=== PATIENT | female | born 1975 | race African-American/Black ===

== ENCOUNTER 2023-12-11 14:07 | Inpatient (IN) | payer OTHER ==
[~2023-12-11] VITALS: Ht 170.2 cm; Wt 106.4 kg
[2023-12-11 14:48] LABS: Alanine Aminotransferase 44 U/L (7-40); Albumin 4.3 g/dL (3.2-4.8); Alkaline Phosphatase 70 U/L (46-116); Anion Gap 7 (5-15); Aspartate Aminotransferase 40 U/L (13-40); BUN/Creatinine Ratio 30.4 (10.0-20.0); Blood Urea Nitrogen 41 mg/dL (9-23); Calcium 9.7 mg/dL (8.5-10.1); Carbon Dioxide 25 mmol/L (20-30); Chloride 104 mmol/L (98-107); Glucose 100 mg/dL (74-106); Potassium 4.4 mmol/L (3.5-5.1); Sodium 136 mmol/L (136-145)
[2023-12-11 14:49] LABS: Bilirubin, Total 1.5 mg/dL (0.2-1.0); Total Protein 6.8 g/dL (5.7-8.2)
[2023-12-11 14:50] LABS: Basophils # (auto) 0.1 10 ^3/uL (0-0.2); Basophils % (auto) 1.6 % (0.0-2.0); Eosinophils # (auto) 0.1 10 ^3/uL (0-0.8); Hematocrit 42.6 % (36.0-46.0); Lymphocytes # (auto) 1.7 10 ^3/uL (0.4-5.4); Lymphocytes % (auto) 33.9 % (10.0-50.0); Mean Corpuscular Hemoglobin 29.5 pg (28.0-32.0); Mean Corpuscular Hgb Conc. 32.9 g/dL (32.0-36.0); Mean Corpuscular Volume 89.7 fL (80.0-100.0); Monocytes # (auto) 0.5 10 ^3/uL (0-1.3); Monocytes % (auto) 10.4 % (0.0-12.0); Neutrophils # (auto) 2.7 10 ^3/uL (1.6-8.6); Neutrophils % (auto) 53.1 % (37.0-80.0); Red Blood Cells 4.74 10^6/uL (4.0-5.20); Red Cell Distribution Width 14.6 % (11.8-14.3); White Blood Cell 5.1 10^3/uL (4.4-10.8)
[2023-12-11 14:52] LABS: Nucleated Red Blood Cells % 3.3 %
[2023-12-11] MEDS ORDERED: HYDROcodone-ACET 5/325MG TAB PO PRN (17:15)
[2023-12-11] MEDS ORDERED: ONDANSETRON HCL 4 MG/2 ML VIAL IV PRN (17:15)
[2023-12-11] MEDS ORDERED: DOCUSATE SOD 100 MG CAP PO PRN (17:15)
[2023-12-11 17:30] LABS: Urine WBC None Seen /hpf (0 - 5)
[2023-12-11 18:27] LABS: Urine Bacteria NONE SEEN /hpf (None Seen); Urine Blood Negative /uL (Negative); Urine Clarity Clear (Clear); Urine Color Colorless (Yellow); Urine Protein, UAD Negative (Negative); Urine Specific Gravity 1.006 (1.001-1.035); Urine Urobilinogen Normal (Negative)
[2023-12-11 18:55] VITALS: PULSE 56; RESP 16; O2SAT 96
[2023-12-11] MEDS: IPRATROPIUM BROM 0.5 MG/2.5ML INH SOL NEB SCH (18:55)
[2023-12-11] MEDS: ALBUTEROL SULF 2.5 MG/0.5ML(0.5%) NEB SOLN NEB SCH (18:55)
[2023-12-11 19:05] VITALS: PULSE 60; RESP 16; O2SAT 100
[2023-12-11 19:56] VITALS: BP 95/56; PULSE 60; RESP 16; TEMP 98.2; O2SAT 96
[2023-12-11] MEDS: SODIUM CHLOR 0.9% PF (SALINE LOCK) 10ML VIAL/SYR IV SCH (22:00)
[2023-12-12] VITALS (13 sets, daily range): BP systolic 95–110; BP diastolic 58–73; PULSE 82–108; RESP 13–20; TEMP 97.6–97.8; O2SAT 95–100
[2023-12-12] MEDS: FUROSEMIDE 40 MG/4 ML VIAL IV SCH (00:04)
[2023-12-12 15:46] LABS: Triglycerides 52 mg/dL (< 150)
[2023-12-12 15:47] LABS: LDL Cholesterol 72 mg/dL (< 100)
[2023-12-12 15:48] LABS: Cholesterol 129 mg/dL (< 200); HDL Cholesterol 47 mg/dL (40-59)
[2023-12-12] MEDS: ASPirin 81 mg TAB PO ONE (15:49)
[2023-12-12] MEDS: HYDROmorphone HCL 2 MG/ML VL/or syr IV PRN (18:10)
[2023-12-12] MEDS: METOPROLOL TARTRATE 25 MG TAB PO SCH (22:00)
[2023-12-12] MEDS: CARVEDILOL 3.125 MG TAB PO SCH (22:00)
[2023-12-13] VITALS (14 sets, daily range): BP systolic 97–109; BP diastolic 66–86; PULSE 55–115; RESP 20–22; TEMP 97.5–97.9; O2SAT 97–100
[2023-12-13 06:36] LABS: Basophils # (auto) 0 10 ^3/uL (0-0.2); Basophils % (auto) 0.8 % (0.0-2.0); Eosinophils # (auto) 0.1 10 ^3/uL (0-0.8); Eosinophils % (auto) 2.1 % (0.0-7.0); Hematocrit 45.7 % (36.0-46.0); Lymphocytes % (auto) 36.8 % (10.0-50.0); Mean Corpuscular Hemoglobin 29.6 pg (28.0-32.0); Mean Corpuscular Hgb Conc. 32.8 g/dL (32.0-36.0); Monocytes # (auto) 0.6 10 ^3/uL (0-1.3); Monocytes % (auto) 11.4 % (0.0-12.0); Neutrophils # (auto) 2.6 10 ^3/uL (1.6-8.6); Neutrophils % (auto) 48.9 % (37.0-80.0); Nucleated Red Blood Cells % 1.4 %; Red Blood Cells 5.08 10^6/uL (4.0-5.20); Red Cell Distribution Width 15.2 % (11.8-14.3); White Blood Cell 5.3 10^3/uL (4.4-10.8)
[2023-12-13 06:51] LABS: Alanine Aminotransferase 41 U/L (7-40); Albumin 4.3 g/dL (3.2-4.8); Alkaline Phosphatase 75 U/L (46-116); Anion Gap 9 (5-15); Aspartate Aminotransferase 35 U/L (13-40); Calcium 9.4 mg/dL (8.7-10.4); Carbon Dioxide 23 mmol/L (20-30); Chloride 105 mmol/L (98-107); Glucose 98 mg/dL (74-106); Magnesium 2.2 mg/dL (1.6-2.6); Potassium 4.2 mmol/L (3.5-5.1); Sodium 137 mmol/L (136-145)
[2023-12-13 06:52] LABS: Total Protein 7.7 g/dL (5.7-8.2)
[2023-12-13 06:54] LABS: Free T3 4.36 pg/mL (2.3-4.2); Free T4 (Free Thyroxine) 1.86 ng/dL (0.89-1.76)
[2023-12-13 07:04] LABS: Blood Urea Nitrogen 29 mg/dL (9-23)
[2023-12-13] MEDS: EMPAGLIFLOZIN 10 MG TAB PO SCH (10:27)
[2023-12-13] MEDS: ASPirin 81 mg TAB PO SCH (10:28)
[2023-12-13] MEDS: ALPRAZolam 0.5 MG TAB PO SCH (14:27)
[2023-12-13] MEDS: ACETAMINOPHEN 325 MG TAB PO PRN (14:29)
[2023-12-13] MEDS: AMIODARONE HCL 200 MG TAB PO ONE (22:00)
[2023-12-14] VITALS (8 sets, daily range): BP systolic 95–150; BP diastolic 58–62; PULSE 58–114; RESP 18–20; TEMP 36.7; O2SAT 94–97
[2023-12-14] MEDS: BUMETANIDE 1 MG TAB PO SCH (06:17)
[2023-12-14] MEDS ORDERED: EMPA1TAB PO (08:40)
[2023-12-14] MEDS ORDERED: SACU1TAB PO (08:40)
[2023-12-14] MEDS ORDERED: METO25TA5 PO (08:40)
[2023-12-14] MEDS ORDERED: BUME2TAB5 PO (08:40)
[2023-12-14] MEDS ORDERED: ALPR1TAB2 PO (08:40)
[2023-12-14] MEDS ORDERED: ALBUAER3 IN (08:40)
[2023-12-14] MEDS: AMIODARONE HCL 200 MG TAB PO SCH (10:00)
[2023-12-14] MEDS: SACUBITRIL-VALSARTAN 24mg/26mg TAB PO SCH (10:00)
== END 2023-12-14 11:00 | disposition home or self-care (01) | DRG 280 ==
LOC: ER 14:07 → TELE-CENTR 17:08 → TELE 17:08 → TELE-CENTR 18:40
PROVIDERS: ADMIT Internal Medicine; ATTEND Family Medicine
DX: I11.0 Hypertensive heart disease with heart failure (principal); I21.A1 Myocardial infarction type 2; I50.23 Acute on chronic systolic (congestive) heart failure; J44.1 Chronic obstructive pulmonary disease with (acute) exacerbation; N17.9 Acute kidney failure, unspecified; I47.20 Ventricular tachycardia, unspecified; E05.00 Thyrotoxicosis with diffuse goiter without thyrotoxic crisis or storm; Z53.29 Procedure and treatment not carried out because of patient's decision for other reasons; Z79.899 Other long term (current) drug therapy; Z95.810 Presence of automatic (implantable) cardiac defibrillator
CPT/HCPCS: 36415; 71046; 80053; 80061; 81001; 83735; 83880; 84439; 84443; 84481; 84484; 85025; 93005; 93306; 94640; G0378

== ENCOUNTER 2024-01-06 23:47 | Inpatient (IN) | payer OTHER ==
[~2024-01-06] VITALS: Ht 177.8 cm; Wt 104.2 kg
[~2024-01-06 23:47] MED LIST: ALBUAER3 IN; ALPR1TAB2 PO; BUME2TAB5 PO; EMPA1TAB PO; METO25TA5 PO; SACU1TAB PO
[2024-01-07 00:40] LABS: Basophils # (auto) 0.1 10 ^3/uL (0-0.2); Basophils % (auto) 1.8 % (0.0-2.0); Eosinophils # (auto) 0.1 10 ^3/uL (0-0.8); Eosinophils % (auto) 1.2 % (0.0-7.0); Hematocrit 46.5 % (36.0-46.0); Hemoglobin 15.1 g/dL (12.2-16.2); Lymphocytes % (auto) 39.5 % (10.0-50.0); Mean Corpuscular Hemoglobin 28.9 pg (28.0-32.0); Mean Corpuscular Hgb Conc. 32.5 g/dL (32.0-36.0); Mean Corpuscular Volume 88.9 fL (80.0-100.0); Monocytes # (auto) 0.4 10 ^3/uL (0-1.3); Monocytes % (auto) 8.4 % (0.0-12.0); Neutrophils # (auto) 2.4 10 ^3/uL (1.6-8.6); Neutrophils % (auto) 49.1 % (37.0-80.0); Nucleated Red Blood Cells % 0.3 %; Red Blood Cells 5.23 10^6/uL (4.0-5.20); Red Cell Distribution Width 15.8 % (11.8-14.3)
[2024-01-07 00:57] LABS: Alanine Aminotransferase 31 U/L (7-40); Albumin 4.3 g/dL (3.2-4.8); Alkaline Phosphatase 78 U/L (46-116); Anion Gap 7 (5-15); Aspartate Aminotransferase 42 U/L (13-40); BUN/Creatinine Ratio 18.6 (10.0-20.0); Blood Urea Nitrogen 19 mg/dL (9-23); Carbon Dioxide 25 mmol/L (20-30); Chloride 106 mmol/L (98-107); Glucose 96 mg/dL (74-106); Potassium 3.7 mmol/L (3.5-5.1); Sodium 138 mmol/L (136-145)
[2024-01-07 00:58] LABS: Total Protein 7.7 g/dL (5.7-8.2)
[2024-01-07] MEDS: ASPirin 81 mg TAB PO ONE (02:13)
[2024-01-07] MEDS ORDERED: NITROGLYCERIN 0.4 MG SL TAB SL PRN (02:45)
[2024-01-07] MEDS ORDERED: ACETAMINOPHEN 325 MG TAB PO PRN (02:45)
[2024-01-07] MEDS ORDERED: ONDANSETRON HCL 4 MG/2 ML VIAL IV PRN (02:45)
[2024-01-07] MEDS ORDERED: MORPHINE SULFATE INJ 2 MG/ml SYRG IV PRN (02:45)
[2024-01-07] MEDS: FUROSEMIDE 40 MG/4 ML VIAL IV ONE (05:39)
[2024-01-07 07:50] VITALS: PULSE 108; RESP 20; O2SAT 100
[2024-01-07] MEDS: ASPirin 81 mg TAB PO SCH (11:51)
[2024-01-07] MEDS: METOPROLOL TARTRATE 25 MG TAB PO SCH (11:52)
[2024-01-07] MEDS: EMPAGLIFLOZIN 10 MG TAB PO SCH (11:52)
[2024-01-07] MEDS: SACUBITRIL-VALSARTAN 24mg/26mg TAB PO SCH (11:52)
[2024-01-07] MEDS: LOSARTAN POTASSIUM 25 MG TAB PO SCH (11:53)
[2024-01-07] MEDS: APIXABAN 5 MG TAB PO SCH (11:53)
[2024-01-07 12:55] LABS: COVID19 ANTIGEN SOFIA FIA NEGATIVE (NEGATIVE)
[2024-01-07 12:56] LABS: Rapid Influenza A Negative (Negative); Rapid Influenza B Negative (Negative)
[2024-01-07 13:42] LABS: INR 1.14 (0.9-1.15); Partial Thromboplastin Time 28.9 SEC (24.5-34.5); Prothrombin Time 11.9 sec (9.3-11.8)
[2024-01-07] MEDS: ALPRAZolam 0.5 MG TAB PO ONE (13:42)
[2024-01-07] MEDS: ALPRAZolam 0.5 MG TAB PO SCH (13:42)
[2024-01-07] MEDS: AMIODARONE HCL 200 MG TAB PO ONE ×2 (14:53→15:32)
[2024-01-07] MEDS: AZITHROMYCIN 500MG/ 250ML 250 ML IV SCH (16:24)
[2024-01-07] MEDS: FUROSEMIDE 20 MG/2 ML VIAL IV SCH (18:00)
[2024-01-07] MEDS ORDERED: FUROSEMIDE 20 MG/2 ML VIAL IV SCH (18:00)
[2024-01-07] MEDS: cefTRIAXone 1GM/50ML D5W 50 ML IV SCH (19:10)
[2024-01-07 19:37] VITALS: BP 99/66; PULSE 98; RESP 18; TEMP 97.7; O2SAT 97
[2024-01-07 19:45] VITALS: PULSE 105; RESP 25; O2SAT 99
[2024-01-07] MEDS: ALBUTEROL SULF 2.5 MG/0.5ML(0.5%) NEB SOLN NEB PRN (19:49)
[2024-01-07 19:50] VITALS: PULSE 98; RESP 18; O2SAT 93
[2024-01-07] MEDS: IPRATROPIUM BROM 0.5 MG/2.5ML INH SOL NEB SCH (19:50)
[2024-01-07 20:00] VITALS: PULSE 97; RESP 20; O2SAT 100
[2024-01-07] MEDS: NALOXONE HCL 1MG/ML 2ML SYRINGE IV ONE (20:22)
[2024-01-07 20:34] LABS: Amphetamine Screen, Urine Pos (NEGATIVE); Barbiturate Scree,Urine Neg (NEGATIVE); Benzodiazephine Screen, Urine Neg (NEGATIVE); Cannabinoid Screen, Urine Pos (NEGATIVE); Cocaine Screen, Urine Neg (NEGATIVE); Opiate Scree,Urine Neg (NEGATIVE); Phencyclidine Screen, Urine Neg (NEGATIVE)
[2024-01-07 20:56] LABS: Urine Bacteria NONE SEEN /hpf (None Seen); Urine Blood TRACE /uL (Negative); Urine Clarity Clear (Clear); Urine Color Colorless (Yellow); Urine Protein, UAD 1+ (Negative); Urine Urobilinogen Normal (Negative); Urine WBC 2 /hpf (0 - 5)
[2024-01-07] MEDS: ALBUMIN 25% 100 ML IV ONE (22:35)
[2024-01-08] VITALS (8 sets, daily range): PULSE 94–108; RESP 15–23; O2SAT 93–100
[2024-01-08 05:56] LABS: Basophils # (auto) 0 10 ^3/uL (0-0.2); Basophils % (auto) 0.9 % (0.0-2.0); Eosinophils # (auto) 0.1 10 ^3/uL (0-0.8); Eosinophils % (auto) 1.1 % (0.0-7.0); Hematocrit 45.2 % (36.0-46.0); Hemoglobin 14.8 g/dL (12.2-16.2); Lymphocytes # (auto) 1.7 10 ^3/uL (0.4-5.4); Lymphocytes % (auto) 35.3 % (10.0-50.0); Mean Corpuscular Hgb Conc. 32.6 g/dL (32.0-36.0); Monocytes # (auto) 0.5 10 ^3/uL (0-1.3); Monocytes % (auto) 9.3 % (0.0-12.0); Neutrophils # (auto) 2.6 10 ^3/uL (1.6-8.6); Neutrophils % (auto) 53.4 % (37.0-80.0); Nucleated Red Blood Cells % 0.2 %; Red Blood Cells 5.08 10^6/uL (4.0-5.20); Red Cell Distribution Width 15.6 % (11.8-14.3); White Blood Cell 4.9 10^3/uL (4.4-10.8)
[2024-01-08 06:12] LABS: Alanine Aminotransferase 25 U/L (7-40); Alkaline Phosphatase 64 U/L (46-116); Anion Gap 11 (5-15); Blood Urea Nitrogen 25 mg/dL (9-23); Calcium 9.5 mg/dL (8.7-10.4); Carbon Dioxide 24 mmol/L (20-30); Chloride 103 mmol/L (98-107); Potassium 3.6 mmol/L (3.5-5.1); Sodium 138 mmol/L (136-145)
[2024-01-08 06:13] LABS: Albumin 3.9 g/dL (3.2-4.8); Aspartate Aminotransferase 32 U/L (13-40)
[2024-01-08 06:14] LABS: Total Protein 7.1 g/dL (5.7-8.2)
[2024-01-08 06:16] LABS: BUN/Creatinine Ratio 19.5 (10.0-20.0); Glucose 88 mg/dL (74-106)
[2024-01-08 06:19] LABS: Bilirubin, Total 1.2 mg/dL (0.2-1.0)
[2024-01-08] MEDS: AMIODARONE HCL 200 MG TAB PO SCH (10:19)
[2024-01-08] MEDS ORDERED: FURO40TA4 PO ×2 (14:19→16:56)
[2024-01-08] MEDS ORDERED: AMIO200T33 PO (14:38)
[2024-01-08] MEDS ORDERED: CARV6.2551 PO (16:56)
[2024-01-08] MEDS ORDERED: ALBU108A5 INH (16:56)
[2024-01-08] MEDS ORDERED: SPIR100T4 PO (16:56)
[2024-01-08] MEDS ORDERED: ERGO1CAP12 PO (16:56)
[2024-01-08] MEDS ORDERED: APIX5TAB PO (16:56)
[2024-01-08 16:59] LABS: Base Excess 1.6 mmol/L (-2.0-2.0)
[2024-01-09] VITALS (19 sets, daily range): BP systolic 101–136; BP diastolic 71–91; PULSE 56–115; RESP 18–40; TEMP 97.2–98.1; O2SAT 92–100
[2024-01-09 09:34] LABS: Base Excess 2.3 mmol/L (-2.0-2.0)
[2024-01-09 14:44] LABS: Base Excess -1.8 mmol/L (-2.0-2.0)
[2024-01-09] MEDS ORDERED: AUG875T PO (17:46)
[2024-01-09] MEDS: guaiFENesin-DM 100/10mg/5ml SYR PO PRN (18:52)
[2024-01-10] VITALS (14 sets, daily range): BP systolic 83–126; BP diastolic 56–74; PULSE 48–102; RESP 16–24; TEMP 97.5–98.4; O2SAT 92–100
[2024-01-10 05:32] LABS: Basophils # (auto) 0.1 10 ^3/uL (0-0.2); Basophils % (auto) 1.7 % (0.0-2.0); Eosinophils # (auto) 0.1 10 ^3/uL (0-0.8); Hematocrit 47.6 % (36.0-46.0); Hemoglobin 15.3 g/dL (12.2-16.2); Lymphocytes # (auto) 1.9 10 ^3/uL (0.4-5.4); Lymphocytes % (auto) 39.8 % (10.0-50.0); Mean Corpuscular Hemoglobin 28.7 pg (28.0-32.0); Mean Corpuscular Hgb Conc. 32.2 g/dL (32.0-36.0); Mean Corpuscular Volume 89.1 fL (80.0-100.0); Monocytes # (auto) 0.6 10 ^3/uL (0-1.3); Monocytes % (auto) 12.2 % (0.0-12.0); Neutrophils % (auto) 43.3 % (37.0-80.0); Nucleated Red Blood Cells % 0.5 %; Red Blood Cells 5.35 10^6/uL (4.0-5.20); Red Cell Distribution Width 15.8 % (11.8-14.3); White Blood Cell 4.7 10^3/uL (4.4-10.8)
[2024-01-10 05:42] LABS: Chloride 100 mmol/L (98-107); Potassium 3.7 mmol/L (3.5-5.1); Sodium 136 mmol/L (136-145)
[2024-01-10 05:43] LABS: Anion Gap 11 (5-15); Calcium 9.7 mg/dL (8.7-10.4); Carbon Dioxide 25 mmol/L (20-30)
[2024-01-10 05:48] LABS: BUN/Creatinine Ratio 22.4 (10.0-20.0); Blood Urea Nitrogen 30 mg/dL (9-23); Glucose 83 mg/dL (74-106)
[2024-01-11] VITALS (9 sets, daily range): BP systolic 91–134; BP diastolic 60–70; PULSE 62–112; RESP 18–22; TEMP 36.7; O2SAT 90–100
[2024-01-11 10:21] LABS: Basophils # (auto) 0 10 ^3/uL (0-0.2); Basophils % (auto) 0.9 % (0.0-2.0); Eosinophils # (auto) 0.1 10 ^3/uL (0-0.8); Eosinophils % (auto) 3.4 % (0.0-7.0); Hematocrit 45.5 % (36.0-46.0); Hemoglobin 14.8 g/dL (12.2-16.2); Lymphocytes % (auto) 25.2 % (10.0-50.0); Mean Corpuscular Hgb Conc. 32.6 g/dL (32.0-36.0); Mean Corpuscular Volume 89.1 fL (80.0-100.0); Monocytes # (auto) 0.5 10 ^3/uL (0-1.3); Monocytes % (auto) 13.5 % (0.0-12.0); Neutrophils # (auto) 2.2 10 ^3/uL (1.6-8.6); Nucleated Red Blood Cells % 0.4 %; Red Blood Cells 5.11 10^6/uL (4.0-5.20); Red Cell Distribution Width 15.7 % (11.8-14.3); White Blood Cell 3.9 10^3/uL (4.4-10.8)
[2024-01-11 10:40] LABS: Anion Gap 6 (5-15); Carbon Dioxide 27 mmol/L (20-30); Chloride 100 mmol/L (98-107); Potassium 3.8 mmol/L (3.5-5.1); Sodium 133 mmol/L (136-145)
[2024-01-11 10:42] LABS: Calcium 9.1 mg/dL (8.5-10.1)
[2024-01-11 10:46] LABS: BUN/Creatinine Ratio 21.4 (10.0-20.0); Blood Urea Nitrogen 28 mg/dL (9-23); Glucose 136 mg/dL (74-106)
[2024-01-11] MEDS ORDERED: ALBU108A5 IN (16:14)
== END 2024-01-11 17:40 | disposition home or self-care (01) | DRG 177 ==
LOC: ER 23:47 → TELE 01-07 02:50 → TELE-EAST 01-08 23:36
PROVIDERS: ADMIT Internal Medicine Pulmonary Disease; ATTEND Neuromusculoskeletal Medicine & OMM
DX: J15.69 Pneumonia due to other Gram-negative bacteria (principal); I21.A1 Myocardial infarction type 2; I50.23 Acute on chronic systolic (congestive) heart failure; N17.0 Acute kidney failure with tubular necrosis; J44.1 Chronic obstructive pulmonary disease with (acute) exacerbation; I47.20 Ventricular tachycardia, unspecified; J44.0 Chronic obstructive pulmonary disease with (acute) lower respiratory infection; J15.9 Unspecified bacterial pneumonia; I11.0 Hypertensive heart disease with heart failure; Z20.822 Contact with and (suspected) exposure to COVID-19; I08.1 Rheumatic disorders of both mitral and tricuspid valves; E05.00 Thyrotoxicosis with diffuse goiter without thyrotoxic crisis or storm; I27.20 Pulmonary hypertension, unspecified; F15.10 Other stimulant abuse, uncomplicated; F12.10 Cannabis abuse, uncomplicated; Z95.810 Presence of automatic (implantable) cardiac defibrillator; I25.2 Old myocardial infarction; Z79.899 Other long term (current) drug therapy
CPT/HCPCS: 36415; 36600; 71045; 80048; 80053; 80061; 80307; 81001; 82306; 82607; 82805; 83036; 83605; 83735; 83880; 84439; 84443; 84484; 85025; 85379; 85610; 85730; 87040; 87426; 87804; 93005; 93970; 94640; 97110; 97116; 97163; 97530; 99291; G0378; P9047